=== PATIENT | female | born 1995 | race Two or more races ===

== ENCOUNTER 2021-06-14 10:09 | Outpatient (CLI) | payer OTHER ==
[~2021-06-14 10:09] MED LIST: ALBUTEROL SULFAT2 MG PO; TRISPEC-PE DROP5 ML PO
== END 2021-06-17 14:22 | disposition home or self-care (01) ==
LOC: MAMO-SONO 10:09
PROVIDERS: ATTEND Surgery
DX: D24.2 Benign neoplasm of left breast (principal); N60.11 Diffuse cystic mastopathy of right breast; N60.12 Diffuse cystic mastopathy of left breast

== ENCOUNTER 2021-06-28 05:36 | Day surgery (SDC) | payer OTHER | END 2021-06-28 11:50 | disposition home or self-care (01) | LOC: CIR.AMB 05:36 | PROVIDERS: ATTEND Surgery | DX: D24.2 Benign neoplasm of left breast (principal); Z20.822 Contact with and (suspected) exposure to COVID-19 ==

== ENCOUNTER 2022-08-05 16:32 | Emergency (ER) | payer OTHER ==
[~2022-08-05] VITALS: Ht 170.2 cm; Wt 60.8 kg
== END 2022-08-05 20:29 | disposition home or self-care (01) ==
LOC: ER 16:32
DX: R10.31 Right lower quadrant pain (principal); N83.201 Unspecified ovarian cyst, right side

== ENCOUNTER 2024-01-25 09:13 | Emergency (ER) | payer OTHER ==
[~2024-01-25] VITALS: Ht 170.2 cm; Wt 61.2 kg
== END 2024-01-25 11:28 | disposition home or self-care (01) ==
LOC: ER 09:13
DX: M25.511 Pain in right shoulder (principal)

== ENCOUNTER 2024-12-21 15:40 | Emergency (ER) | payer OTHER ==
[~2024-12-21] VITALS: Ht 170.2 cm; Wt 61.2 kg
[2024-12-21 17:36] LABS: HEMATOCRIT 40.3 % (36.0-45.00); HEMOGLOBIN 13.5 g/dL (12.0-15.00); MEAN CELL VOLUME 90.2 fL (80.00-100.00); MEAN CORPUSCULAR HEMOGLOBIN 30.2 pg (27.00-32.0); MEAN CORPUSCULAR HGB CONC 33.5 g/dl (32.0-36.0); PLATELET COUNT 207 K/uL (150-450); RED BLOOD COUNT 4.47 M/uL (4.00-6.00); RED CELL DISTRIBUTION WIDTH 14.1 % (11.5-14.5)
[2024-12-21 18:04] LABS: ALBUMIN 4.1 gm/dL (3.4-5.0); BILIRUBIN TOTAL 0.29 mg/dL (0.3-1.2); CALCIUM 9.4 mg/dL (8.5-10.1); CREATININE SERUM 0.58 mg/dL (0.55-1.02); GFR 122.06; GLOBULINA 3.8 G/DL (2.4-3.5); POTASSIUM 3.5 mEq/L (3.5-5.1); TOTAL PROTEIN 7.9 gm/dL (6.4-8.2)
[2024-12-21 18:19] LABS: URINE APPEARANCE Clear; URINE BILIRRUBIN Negative (NEGATIVE); URINE BLOOD Small; URINE COLOR Yellow; URINE GLUCOSE Negative (NEGATIVE); URINE KETONE Negative (NEGATIVE); URINE LEUKOCYTE Negative; URINE NITRATE Negative; URINE PROTEIN Negative (NEGATIVE); URINE UROBILINOGEN 0.2 E.U./dl
[2024-12-21 18:23] LABS: URINE BACTERIA 63.6 uL (0.0-1933); URINE EPITHELIAL CELLS 22.3 uL (0.0-38.8); URINE WBC 28.3 uL (0.0-23.2)
[2024-12-21] MEDS ORDERED: KETOROLAC TROMETHAMINE 30 MG VIAL ONE (21:41)
[2024-12-21] MEDS ORDERED: KETOROLAC TROMETHAMINE 30 MG VIAL IM ONE (21:45)
== END 2024-12-21 22:40 ==
LOC: ER 15:42
PROVIDERS: General Practice
DX: N39.0 Urinary tract infection, site not specified (principal)